=== PATIENT | male | born 1985 | race Two or more races ===

== ENCOUNTER → 2020-06-11 15:27 | Outpatient (CLI) | payer OTHER | END | disposition home or self-care (01) | LOC: OFIC 805 14:20 | PROVIDERS: ATTEND Otolaryngology Otology & Neurotology | DX: H92.02 Otalgia, left ear (principal); H90.42 Sensorineural hearing loss, unilateral, left ear, with unrestricted hearing on the contralateral side; H61.23 Impacted cerumen, bilateral ==

== ENCOUNTER 2020-06-25 13:40 | Outpatient (CLI) | payer OTHER | END 2020-06-25 14:39 | disposition home or self-care (01) | LOC: OFIC 805 13:40 | PROVIDERS: ATTEND Otolaryngology Otology & Neurotology | DX: H92.02 Otalgia, left ear (principal); H90.42 Sensorineural hearing loss, unilateral, left ear, with unrestricted hearing on the contralateral side; H61.23 Impacted cerumen, bilateral ==